=== PATIENT | male | born 1985 | race Caucasian/White ===

== ENCOUNTER 2016-11-14 12:44 | Emergency (ER) | payer BC ==
[~2016-11-14] VITALS: Ht 175.3 cm; Wt 118.9 kg
[2016-11-14 13:22] VITALS: BP 126/77
== END 2016-11-14 13:22 | disposition home or self-care (01) ==
LOC: ED 12:44
DX: K42.9 Umbilical hernia without obstruction or gangrene (principal); K43.9 Ventral hernia without obstruction or gangrene